=== PATIENT | male | born 1955 | race Caucasian/White ===

== ENCOUNTER 2017-02-03 13:15 | Emergency (ER) | payer MEDICAID, OTHER ==
[~2017-02-03] VITALS: Ht 177.8 cm; Wt 99.8 kg
[~2017-02-03 13:15] MED LIST: ADVAIR 500-501 EACH INH; BENTYL10 MG ORAL; CLOTRIMAZOLE15 GM TOPIC; COLACE100 MG ORAL; COMBIVENT INH14.7 GM INH; DOXYCYCLINE MO100 M2 PO; IBUPROFEN600 MG ORAL; LEVAQUIN500 MG ORAL; NORCO 10-325 T1 EACH ORAL; NORCO 10/3251 EA ORAL; NORCO 5-325 TA1 EACH ORAL; NORCO1 EA ORAL; PREDNISONE10 MG ORAL; PREDNISONE20 MG ORAL; PROVENTIL HFA6.7 G1 HHN; PROVENTIL HFA6.7 G1 IH; ZOFRAN ODT4 MG ORAL
--- NOTE | 2017-02-03 13:29 | Emergency Room Report ---
History of Present Illness General Chief Complaint: Syncope Source: Patient Present Illness HPI Patient brought to the emergency room with reports of possible syncope versus near syncopal episode Patient himself states that he does not think he fully passed out he reports pain near the bus stop when he scraped the top of his head Denies any chest pain or shortness of breath denies any back or flank pain there was a report by paramedics of witnessed syncope Upon arrival the patient is refusing any intervention or treatment He reports that he does not want a picture of his head Patient is awake and alert , Allergies: Coded Allergies: PENICILLINS (Unverified Allergy, Severe, ANAPHYLAXIS, 10/23/12) COPIED FROM UNCODED SECTION IODINE (Verified Allergy, Intermediate, 05/24/13) SHELLFISH DERIVED (Verified Allergy, Intermediate, 05/24/13) EGG (Verified Allergy, Mild, 01/22/13) Uncoded Allergies: mayonaise (Allergy, Intermediate, 01/22/14) contrast media (Adverse Reaction, Severe, headache, 01/22/13) Patient History Past Medical History: see triage record Pertinent Family History: none Reviewed Nursing Documentation: PMH: Agreed, PSxH: Agreed Nursing Documentation-PMH Hx Cardiac Problems: Yes - SUBSTANCE ABUSE Hx Hypertension: Yes Hx COPD: Yes Hx Cancer: No Hx Gastrointestinal Problems: Yes Hx Neurological Problems: Yes Hx Head Trauma: Yes Review of Systems All Other Systems: negative except mentioned in HPI Physical Exam Vital Signs Date Time Temp Pulse Resp B/P (MAP) Pulse Ox O2 Delivery O2 Flow Rate FiO2 02/03/17 13:16 98.6 82 16 136/96 96 Room Air Sp02 EP Interpretation: reviewed, normal General Appearance: well appearing, no apparent distress Head: other - Small abrasion over the top mid parietal area, no obvious laceration Eyes: bilateral eye PERRL, bilateral eye EOMI ENT: hearing grossly normal, normal pharynx, TMs + canals normal, uvula midline Neck: full range of motion, supple, no meningismus, no bony tend Respiratory: no rhonchi, no respiratory distress, no retraction, no accessory muscle use, crackles - Fine crackles at both lower lobe Cardiovascular #1: normal peripheral pulses, regular rate, rhythm, no edema, no gallop, no JVD, no murmur Gastrointestinal: normal bowel sounds, non tender, soft, no mass, no organomegaly, non-distended, no guarding, no hernia, no pulsatile mass, no rebound Genitourinary: no CVA tenderness Musculoskeletal: normal inspection Neurologic: oriented x3, responsive, industrial chemist III-XII nml as tested, motor strength/ tone normal, sensory intact Psychiatric: mood/affect normal Skin: warm/dry, palpation normal, other - as above Lymphatic: normal inspection, no adenopathy Medical Decision Making Diagnostic Impression: Primary Impression: Syncope Additional Impression: Refusal of care by patient ER Course Patient presents awake and alert At this time refusing any further intervention or workup Patient understands that this can lead to worsening symptoms and possible that At this time remains hemodynamically stable Patient remained GCS 15 awake and alert Observed further in the emergency room and meeting with refusal of any care AGAINST MEDICAL ADVICE Last Vital Signs Date Time Temp Pulse Resp B/P (MAP) Pulse Ox O2 Delivery O2 Flow Rate FiO2 02/03/17 13:16 98.6 82 16 136/96 96 Room Air Status: improved Disposition: AGAINST MEDICAL ADVICE Condition: Unknown Additional Instructions: Please return to the emergency room if you change in her mind, it is felt that he require further workup and examination for your presentation today EDWIN SHAFFER D.O. Feb 03, 2017 13:29
[2017-02-03 13:55] VITALS: BP 136/96
== END 2017-02-03 14:00 | disposition home or self-care (01) ==
LOC: EDBD 13:15 → EMR 13:50
DX: R55 Syncope and collapse (principal); I10 Essential (primary) hypertension; J44.9 Chronic obstructive pulmonary disease, unspecified; Z91.041 Radiographic dye allergy status; Z91.012 Allergy to eggs; Z88.0 Allergy status to penicillin; Z91.013 Allergy to seafood; Z91.018 Allergy to other foods
CPT/HCPCS: 99283

== ENCOUNTER 2017-02-17 02:18 | Emergency (ER) | payer MEDICAID ==
[~2017-02-17] VITALS: Ht 170.2 cm; Wt 77.1 kg
[2017-02-17 02:34] VITALS: BP 115/75
[2017-02-17] MEDS: Sodium Chloride 500ML 500 ML IV ONE ×2 (02:45→03:20)
--- NOTE | 2017-02-17 02:48 | Emergency Room Report ---
History of Present Illness General Chief Complaint: Syncope Source: Patient Present Illness HPI This is a 62-year-old male with a history of COPD and CHF in the past. He had a syncope and head injury in early January. He was sent here and refused CT scan. Since then he said he had 3 more episode of syncope. He present today with a chief complaint of syncope. He was in AA meeting at midnight to 3 AM. He stood up today and had a syncopal episode. Hit the carpet. No chest pain been no prodrome. No nausea no vomiting. Better now. Allergies: Coded Allergies: PENICILLINS (Unverified Allergy, Severe, ANAPHYLAXIS, 10/23/12) COPIED FROM UNCODED SECTION IODINE (Verified Allergy, Intermediate, 05/24/13) SHELLFISH DERIVED (Verified Allergy, Intermediate, 05/24/13) EGG (Verified Allergy, Mild, 01/22/13) Uncoded Allergies: mayonaise (Allergy, Intermediate, 01/22/14) contrast media (Adverse Reaction, Severe, headache, 01/22/13) Patient History Past Medical History: see triage record, old chart reviewed, CHF, COPD Past Surgical History: other Pertinent Family History: none Social History: Denies: alcohol use - History of Immunizations: other Reviewed Nursing Documentation: PMH: Agreed, PSxH: Agreed Nursing Documentation-PMH Hx Cardiac Problems: Yes - ALCOHOL SUBSTANCE ABUSE 25 yrs ago Hx Hypertension: Yes - CHF Hx COPD: Yes Hx Cancer: No Hx Gastrointestinal Problems: Yes Hx Neurological Problems: Yes Hx Head Trauma: Yes Review of Systems Eye: Denies: eye pain, blurred vision ENT: Denies: ear pain, nose congestion, throat swelling Respiratory: Denies: cough, shortness of breath Cardiovascular: Denies: chest pain, palpitations Gastrointestinal: Denies: abdominal pain, diarrhea, nausea, vomiting Musculoskeletal: Denies: back pain, joint pain Skin: Denies: rash Neurological: Denies: headache, numbness Endocrine: Denies: increased thirst, increased urine Hematologic/Lymphatic: Denies: easy bruising All Other Systems: negative except mentioned in HPI Physical Exam Vital Signs Date Time Temp Pulse Resp B/P (MAP) Pulse Ox O2 Delivery O2 Flow Rate FiO2 02/17/17 02:20 98.1 75 18 147/84 98 vitals normal Sp02 EP Interpretation: reviewed, normal General Appearance: well appearing, no apparent distress, alert Head: normocephalic, atraumatic Eyes: bilateral eye PERRL, bilateral eye EOMI ENT: hearing grossly normal, normal pharynx Neck: full range of motion, supple, no meningismus Respiratory: chest non-tender, lungs clear, normal breath sounds Cardiovascular #1: regular rate, rhythm, no murmur Gastrointestinal: normal bowel sounds, non tender, no mass, no organomegaly, no bruit, non-distended Musculoskeletal: back normal, gait/station normal, normal range of motion Psychiatric: mood/affect normal Skin: warm/dry Medical Decision Making Diagnostic Impression: Primary Impression: Syncope Qualified Codes: R55 - Syncope and collapse Additional Impression: Injury of head ER Course Patient presents with coarse will syncope. No injury. Was here at the beginning of the month but left without any CT scan. He claimed that he didn't go anywhere else. He has a wrist band for fall percussion on his left wrist. Also has a wrist band for allergies on the right. He had recent IV draw on his right arm. Supposedly this was done as outpatient. I suspect that he went to another hospital recently. He is comfortable here. Sleeping comfortably. We' ll discharge home. Lab Results Impression labs unremarkable EKG Diagnostic Results Rate: normal Rhythm: NSR ST Segments: no acute changes Rhythm Strip Diag. Results Rhythm Strip Time: 02:48 EP Interpretation: yes Rate: 60 Rhythm: NSR Chest X-Ray Diagnostic Results Chest X-Ray Diagnostic Results : Chest X-Ray Ordered: Yes # of Views/Limited/Complete: 1 View Indication: Shortness of Breath EP Interpretation: Yes Interpretation: no consolidation, no effusion, no pneumothorax, no acute cardiopulmonary disease Impression: No acute disease Electronically Signed by: Electronically signed by Francisco Walsh MD CT/MRI/US Diagnostic Results CT/MRI/US Diagnostic Results : Imaging Test Ordered: CT head Impression read by radiologist. Atrophy. Negative. Last Vital Signs Date Time Temp Pulse Resp B/P (MAP) Pulse Ox O2 Delivery O2 Flow Rate FiO2 02/17/17 02:34 98.1 71 16 115/75 98 Status: improved Disposition: HOME, SELF-CARE Condition: Stable Patient Instructions: Syncope Additional Instructions: followup your doctor in 7 days. Return if worse. FRANCISCO WALSH M.D. Feb 17, 2017 02:48
[2017-02-17 03:34] LABS: BASOPHILS % (AUTO) 1.2 % (0.0-2.0); EOSINOPHILS % (AUTO) 1.1 % (0.0-3.0); LYMPHOCYTES % (AUTO) 37.1 % (20.0-45.0); MEAN CORPUSCULAR HEMOGLOBIN 32.8 PG (27.0-31.0); MEAN CORPUSCULAR HGB CONC 33.6 G/DL (32.0-36.0); MEAN CORPUSCULAR VOLUME 98 FL (80-99); MEAN PLATELET VOLUME 7.6 FL (6.5-10.1); MONOCYTES % (AUTO) 7.9 % (1.0-10.0); NEUTROPHILS % (AUTO) 52.6 % (45.0-75.0); PLATELET COUNT 325 K/UL (150-450); RED BLOOD COUNT 3.83 M/UL (4.70-6.10); RED CELL DISTRIBUTION WIDTH 11.9 % (11.6-14.8); WHITE BLOOD COUNT 8.5 K/UL (4.8-10.8)
[2017-02-17 03:35] LABS: APPEARANCE,URINE CLEAR; KETONES,URINE NEGATIVE (NEGATIVE); LEUKOCYTE ESTERASE ,URINE NEGATIVE (NEGATIVE); NITRITE,URINE NEGATIVE (NEGATIVE); PH,URINE 7 (4.5-8.0); PROTEIN,URINE NEGATIVE (NEGATIVE); UROBILINOGEN,URINE 1 MG/DL (0.0-1.0)
[2017-02-17 04:01] LABS: ALANINE AMINOTRANSFERASE 17 U/L (12-78); ANION GAP 7 mmol/L (5-15); ASPARTATE AMINO TRANSFERASE 12 U/L (15-37); CALCIUM 9.4 MG/DL (8.5-10.1); CARBON DIOXIDE 29 MMOL/L (21-32); CHLORIDE 104 MMOL/L (98-107); CKMB 0.9 NG/ML (0.0-3.6); GLOMERULAR FILTRATION RATE > 60 mL/min (>60); POTASSIUM 3.9 MMOL/L (3.5-5.1); SODIUM 140 MMOL/L (136-145); TOTAL PROTEIN 7.5 G/DL (6.4-8.2)
[2017-02-17 04:56] VITALS: BP 132/91
--- NOTE | 2017-02-17 11:22 | Diagnostic Imaging Report ---
Indication: Pain Technique: One view of the chest Comparison: 12/16/2014 Findings: Calcified nodules again seen in both lungs reticulonodular opacities are again demonstrated in the left lung apex. The lungs and pleural spaces are otherwise clear. Heart size is upper limits of normal. Impression: Evidence of old granulomatous disease No definite acute process
--- NOTE | 2017-02-17 11:43 | Diagnostic Imaging Report ---
Indication: TRAUMA Technique: spiral acquisitions obtained through the brain. Angled axial and coronal 5 x 5 mm slices were reconstructed. No IV contrast utilized. Radiation dose was minimized using automated exposure control Total dose length product 1480 mGycm. CTDIvol(s) 70 mGy Comparison: none FINDINGS: No acute hemorrhage or edema. No mass effect or midline shift. There is age-related enlargement of the ventricles and extra axial CSF spaces. 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 There may be old bilateral parietal parasagittal cortical infarcts as well. There is periventricular deep white matter ischemic change. Normal polanco-white differentiation. Visualized orbits are unremarkable. Visualized sinuses are unremarkable. Intact calvarium. IMPRESSION: Chronic and age-related changes. Negative for acute intracranial bleed or mass effect This agrees with the preliminary interpretation provided overnight by [facility]. The CT scanner at [facility] is accredited by the [employer] and the scans are performed using protocols designed to limit radiation exposure to as low as reasonably achievable to attain images of sufficient resolution adequate for diagnostic evaluation
--- NOTE | 2017-02-17 15:00 | Cardiology Report ---
APPROVED REPORT EKG Measurement Heart [id number] Normal sinus rhythm Normal ECG
== END 2017-02-17 04:58 | disposition home or self-care (01) ==
LOC: EMR 02:49
DX: R55 Syncope and collapse (principal); S09.90XA Unspecified injury of head, initial encounter; X58.XXXA Exposure to other specified factors, initial encounter; Y93.9 Activity, unspecified; Y99.9 Unspecified external cause status; Z88.0 Allergy status to penicillin; Z91.041 Radiographic dye allergy status; Z91.012 Allergy to eggs; Z91.013 Allergy to seafood; J44.9 Chronic obstructive pulmonary disease, unspecified; I50.9 Heart failure, unspecified; Z86.79 Personal history of other diseases of the circulatory system; Z87.19 Personal history of other diseases of the digestive system; Z86.69 Personal history of other diseases of the nervous system and sense organs; F10.10 Alcohol abuse, uncomplicated
CPT/HCPCS: 36415; 70450; 71010; 80053; 80306; 81003; 82550; 82553; 83880; 84484; 85025; 93005; 99284